=== PATIENT | male | born 1960 | race Caucasian/White ===

== ENCOUNTER 2021-09-06 14:34 | Emergency (ER) | payer MEDICARE ==
[2021-09-06 15:56] LABS: HEMOGLOBIN 13.7 gm/dl (14.0-17.5); RED BLOOD COUNT 4.46 M/UL (4.20-5.50); WHITE BLOOD COUNT 10.3 K/UL (4.5-11.0)
[2021-09-06 16:16] LABS: BUN/CREATININE RATIO 14 (0-10)
[2021-09-06] MEDS ORDERED: ASPIRIN81 MG PO (20:25)
== END 2021-09-06 21:00 | disposition home or self-care (01) ==
LOC: ER1 14:34
PROVIDERS: Physician Assistant
DX: D75.839 Thrombocytosis, unspecified (principal); F17.210 Nicotine dependence, cigarettes, uncomplicated; I10 Essential (primary) hypertension; J44.9 Chronic obstructive pulmonary disease, unspecified
CPT/HCPCS: 80053; 85025; 85610; 99283